=== PATIENT | male | born 1955 | race Caucasian/White ===

== ENCOUNTER 2017-06-19 12:20 | Inpatient (IN) | payer OTHER ==
[~2017-06-19] VITALS: Ht 167.6 cm; Wt 89.3 kg
[~2017-06-19 12:20] MED LIST: COR6 PO; COZ50 PO; FLO4 PO; GEMFIBROZIL600 MG PO; GLIPIZIDE10 MG PO; LAC PO; LEVAQUIN500 MG PO; METFORMIN HCL1000 MG PO; NAPROSYN500 MG PO
[2017-06-19 12:31] VITALS: Ht 167.6 cm; Wt 89.3 kg
[2017-06-19 14:41] LABS: BASOPHIL % 0.7 % (0-2); PLATELET COUNT 236 x10^3mcL (130-400); RED CELL DISTRIBUTION WIDTH 12.9 % (11.5-14.5)
[2017-06-19 14:52] LABS: CALCIUM 8.3 mg/dL (8.5-10.1); CARBON DIOXIDE 24.3 mmol/L (21-32); CHLORIDE SERUM 99 mmol/L (98-107); GFR1 > 60 mL/min; GLUCOSE SERUM 386 mg/dL (74-106); SODIUM SERUM 134 mmol/L (136-145)
[2017-06-19 14:53] LABS: POTASSIUM SERUM 3.9 mmol/L (3.5-5.1)
[2017-06-19 15:03] LABS: ALBUMIN 3.5 g/dL (3.4-5.0); ALKALINE PHOSPHATASE 69 U/L (46-116); AMYLASE 50 U/L (25-115); BILIRUBIN TOTAL 0.6 mg/dL (0.20-1.00); LIPASE 173 IU/L (73-393); T4(THYROXINE) 7.4 ug/dL (4.7-13.3); TOTAL PROTEIN, SERUM 7.5 g/dL (6.4-8.2)
[2017-06-19 15:04] LABS: CHOLESTEROL 201 mg/dL (<200); HDL CHOLESTEROL 23 mg/dL (40-60)
[2017-06-19 15:46] LABS: microscopic required? NO
[2017-06-19 16:11] LABS: AST/SGOT 16 U/L (15-37)
[2017-06-19 16:18] LABS: urine erythrocyte NEGATIVE (NEGATIVE)
[2017-06-19 17:27] VITALS: BP 174/85
[2017-06-19 17:41] LABS: AMPHETAMINE QUAL UR NONE DETECTED (NEG <=1000)
[2017-06-19 17:59] LABS: PHOSPHOROUS 3.4 mg/dL (2.5-4.9)
[2017-06-19 18:00] LABS: ALT/SGPT 30 U/L (16-63)
[2017-06-19 18:01] LABS: CHOLESTEROL 203 mg/dL (<200); CHOLESTEROL/HDL RATIO 8.5; HDL CHOLESTEROL 24 mg/dL (40-60)
[2017-06-19 18:02] LABS: TRIGLYCERIDES 904 mg/dL (<150)
[2017-06-19] MEDS ORDERED: COZAAR100 MG PO (18:12)
[2017-06-19] MEDS ORDERED: GEMFIBROZIL600 MG PO (18:14)
[2017-06-19] MEDS ORDERED: GLU10XL PO (18:16)
[2017-06-19 21:57] VITALS: BP 127/71
[2017-06-20] VITALS (8 sets, daily range): BP systolic 147–182; BP diastolic 67–88
[2017-06-20 15:27] LABS: BASOPHIL % 0.4 % (0-2); PLATELET COUNT 217 x10^3mcL (130-400); RED CELL DISTRIBUTION WIDTH 13.4 % (11.5-14.5)
[2017-06-20 15:34] LABS: CALCIUM 8.7 mg/dL (8.5-10.1); CARBON DIOXIDE 24.3 mmol/L (21-32); CHLORIDE SERUM 101 mmol/L (98-107); CREATININE SERUM 0.7 mg/dL (0.7-1.3); GFR1 > 60 mL/min; GLUCOSE SERUM 210 mg/dL (74-106); POTASSIUM SERUM 3.7 mmol/L (3.5-5.1); SODIUM SERUM 136 mmol/L (136-145)
[2017-06-21] VITALS (8 sets, daily range): BP systolic 142–196; BP diastolic 68–90
[2017-06-21 07:42] LABS: CALCIUM 8.6 mg/dL (8.5-10.1); CHLORIDE SERUM 104 mmol/L (98-107); CREATININE SERUM 0.7 mg/dL (0.7-1.3); GFR1 > 60 mL/min; GLUCOSE SERUM 175 mg/dL (74-106); POTASSIUM SERUM 3.6 mmol/L (3.5-5.1); SODIUM SERUM 140 mmol/L (136-145)
[2017-06-21 10:00] LABS: BASOPHIL % 0.6 % (0-2); PLATELET COUNT 193 x10^3mcL (130-400); RED CELL DISTRIBUTION WIDTH 13.6 % (11.5-14.5)
[2017-06-22 06:07] VITALS: BP 110/74
[2017-06-22 07:12] LABS: CALCIUM 8.7 mg/dL (8.5-10.1); CHLORIDE SERUM 106 mmol/L (98-107); CREATININE SERUM 0.8 mg/dL (0.7-1.3); GFR1 > 60 mL/min; GLUCOSE SERUM 163 mg/dL (74-106); POTASSIUM SERUM 3.7 mmol/L (3.5-5.1); SODIUM SERUM 139 mmol/L (136-145)
[2017-06-22 08:10] LABS: BASOPHIL % 0.8 % (0-2); PLATELET COUNT 190 x10^3mcL (130-400); RED CELL DISTRIBUTION WIDTH 13.1 % (11.5-14.5)
[2017-06-22 09:58] VITALS: BP 142/79
[2017-06-22] MEDS ORDERED: NOR5 PO (12:20)
[2017-06-22] MEDS ORDERED: COZ50 PO (12:21)
[2017-06-22] MEDS ORDERED: ECO81 PO (12:21)
[2017-06-22] MEDS ORDERED: TYL325 PO (12:21)
[2017-06-22 12:39] VITALS: BP 131/81
[2017-06-22] MEDS ORDERED: HYD25 PO (12:42)
[2017-06-22 15:36] VITALS: BP 131/81
== END 2017-06-22 17:00 | disposition home or self-care (01) | DRG 74 ==
LOC: ED 12:20 → DU 15:32
PROVIDERS: Emergency Medicine; Family Medicine; Student in an Organized Health Care Education/Training Program
DX: G90.9 Disorder of the autonomic nervous system, unspecified (principal); E87.1 Hypo-osmolality and hyponatremia; I45.2 Bifascicular block; E11.65 Type 2 diabetes mellitus with hyperglycemia; I10 Essential (primary) hypertension; E78.5 Hyperlipidemia, unspecified; E78.00 Pure hypercholesterolemia, unspecified; Z91.19 Patient's noncompliance with other medical treatment and regimen; Z83.3 Family history of diabetes mellitus; Z81.1 Family history of alcohol abuse and dependence; Z80.41 Family history of malignant neoplasm of ovary
CPT/HCPCS: 36600; 83880; 87491; 87591; 92610-GN; 97110-GP; 97116-GP; J0696; J1815; J2001; J7030; Q0092